=== PATIENT | male | born 1950 | race Caucasian/White ===

== ENCOUNTER 2021-05-19 19:44 | Emergency (ER) | payer SELFPAY ==
[~2021-05-19] VITALS: Ht 180.3 cm; Wt 57.9 kg
--- NOTE | 2021-05-19 20:08 | PHYS DOC ---
Past History Past Medical History: Arthritis Smoking: Cigarettes General Adult EDM: Chief Complaint: OVERDOSE HPI: HPI: ".. What.. ..". " I don't knw.. ". " Maybe took .. too many pain.. pills " Patient is a 70 year old male who presents with above hx and complaints acute mental status change felt to be due to narcotic overdose. Patient had been taking Lortabs. For recent left lower leg injury. Patient was given 2 Amps of Narcan on arrival by paramedics and patient regained consciousness. The patient returned to a very sedate state. Requires constant noxious stimuli to make him alert enough to respond to questions. Very limited hx or response from pt. Pt. currently very poor historian. Review of Systems: Review of Systems: Constitutional: Denies fever or chills Eyes: Denies change in visual acuity HENT: Denies nasal congestion or sore throat Respiratory: Denies cough or shortness of breath Cardiovascular: Denies chest pain or edema GI: Denies abdominal pain, nausea, vomiting, bloody stools or diarrhea : Denies dysuria Musculoskeletal: Denies back pain or joint pain. Complains of left lower leg pain Integument: Denies rash Neurologic: Denies headache, focal weakness or sensory changes Endocrine: Denies polyuria or polydipsia Lymphatic: Denies swollen glands Psychiatric: Denies depression or anxiety Family History: Family History: Not currently available Current Medications: Current Meds: Not currently available but reportedly taking Lortabs Allergies: Allergies: Denies Physical Exam: PE: Constitutional:no acute distress, appears under the influence of a narcotic or sedative drug HENT: Normocephalic, atraumatic, bilateral external ears normal, oropharynx moist, no oral exudates, nose normal. Edentulous Eyes: PERRLA, EOMI, conjunctiva normal, no discharge. [] Neck: Normal range of motion, no tenderness, supple, no stridor. [] Cardiovascular:Heart rate regular rhythm, no murmur [] PMI to the left. Under shows sinus rhythm in the 70s Lungs & Thorax: Bilateral breath sounds equal apex with some basilar crackles and rhonchi right upper lobes on auscultation [] Abdomen: Bowel sounds decreased, distended, soft, no tenderness, no masses, no p ulsatile masses. [] Skin: Warm, dry, no erythema, no rash. Poor turgor Back: No tenderness, no CVA tenderness. [] Extremities: Planes of left lower leg tenderness, no cyanosis, no clubbing, m oves all extremities with noxious stimuli, no edema. Left lower leg in a splint and wrappings Neurologic: Alert and oriented to name only, patient moves extremities to noxious stimuli, does appear to have distal sensation, appears to be extremely sedated Psychologic: Affect flat, judgement impaired, EKG: EKG: My interpretation EKG shows a sinus rhythm at 77 bpm. No acute morphology [] Radiology/Procedures: Radiology/Procedures: [][address] [address] IMAGING REPORT Signed PATIENT: NENA PRINGLE ACCOUNT: [id number] : 1950 LOCATION: ER AGE: 70 SEX: M EXAM STATUS: REG ER ORD. PHYSICIAN: TERESA COATES MD REASON: OD PROCEDURE: PORTABLE CHEST 1V PROCEDURE: XR CHEST 1V.05/19/2021 9:44 PM REASON FOR STUDY: Reason: OD / Spl. Instructions: / History: . COMPARISON: . FINDINGS: There could be patchy infiltrates toward the bases. The upper lungs are clear. No pleural fluid is seen. Heart size is normal. IMPRESSION: Possible mild basilar infiltrates. Electronically signed by: Dewey Wiggins Jr., MD (05/19/2021 9:45 PM) [facility] DICTATED AND SIGNED BY: DEWEY WIGGINS Jr, MD DATE: 05/19/212143 CC: TERESA COATES MD; PCP,UNKNOWN ~MTH0 0 Heart Score: C/O Chest Pain: N/A HEART Score for Chest Pain: HEART Score for Chest Pain Response (Comments) Value History Slighlty/Non-Suspicious 0 ECG Normal 0 Age > 65 2 Risk Factors 1 or 2 Risk Factors 1 Troponin < Normal Limit 0 Total 3 Risk Factors: Risk Factors: DM, Current or recent (<one month) smoker, HTN, HLP, family history of CAD, obesity. Risk Scores: Score 0 - 3: 2.5% MACE over next 6 weeks - Discharge Home Score 4 - 6: 20.3% MACE over next 6 weeks - Admit for Clinical Observation Score 7 - 10: 72.7% MACE over next 6 weeks - Early Invasive Strategies Course & Med Decision Making: Course & Med Decision Making Pertinent Labs and Imaging studies reviewed. (See chart for details) Pt. mentation gradually cleared from pronation and fluids. Patient then demanding discharge home immediately. Encourage patient to consider drug rehab. Patient return if any concerns. Patient ambulatory mild limp left lower leg. Pt.left with friend. Pt. decline to wait for formal discharge. Impression: 1. Altered Mental Status-suspect narcotic overdose 2. Mild anemia hemoglobin 11.2 3. Thrombocytopenia 97 4. Mild elevation BNP 232 5. Mild malnutrition albumin 3.1 [] Dragon Disclaimer: Dragon Disclaimer: This electronic medical record was generated, in whole or in part, using a voice recognition dictation system. Dragon Disclaimer This chart was dictated in whole or in part using Voice Recognition software in a busy, high-work load, and often noisy Emergency Department environment. It may contain unintended and wholly unrecognized errors or omissions. TERESA COATES MD May 19, 2021 20:07
[2021-05-19] MEDS ORDERED: IV RINGERS SOLUTION,LACTATED 1,000 ML IV SCH (20:15)
[2021-05-19 21:09] LABS: BASO % 0 % (0-3); EOS % 1 % (0-3); HEMOGLOBIN 11.2 g/dL (13.0-17.5); LYMPH # 0.4 x10^3/uL (1.0-4.8); LYMPH % 11 % (24-48); MEAN CORPUSCULAR HEMOGLOBIN 32 pg (25-35); MEAN CORPUSCULAR HGB CONC 34 g/dL (31-37); MEAN CORPUSCULAR VOLUME 95 fL (79-100); MONO # 0.6 x10^3/uL (0.0-1.1); MONO % 16 % (0-9); NEUT # 2.8 x10^3uL (1.8-7.7); NEUT % 73 % (31-73); PLATELET COUNT 97 x10^3/uL (140-400); RED BLOOD COUNT 3.48 x10^6/uL (4.30-5.70); RED CELL DISTRIBUTION WIDTH 13.7 % (11.5-14.5); WHITE BLOOD COUNT 3.9 x10^3/uL (4.0-11.0)
[2021-05-19 21:24] LABS: ACETAMIN < 2.0 mcg/mL (10-30); ETHANOL < 10 mg/dL (0-10); SALIC 3.7 mg/dL (2.8-20.0)
[2021-05-19 21:32] LABS: ALBUMIN 3.1 g/dL (3.4-5.0); CALCIUM 8.4 mg/dL (8.5-10.1); DIRECT BILIRUBIN 0.2 mg/dL (0.0-0.2); GFR 74.3; POTASSIUM 4.4 mmol/L (3.5-5.1); TOTAL BILIRUBIN 0.5 mg/dL (0.2-1.0); TOTAL PROTEIN 6.9 g/dL (6.4-8.2)
--- NOTE | 2021-05-19 21:47 | RAD ---
PROCEDURE: XR CHEST 1V.05/19/2021 9:44 PM REASON FOR STUDY: Reason: OD / Spl. Instructions: / History: . COMPARISON: . FINDINGS: There could be patchy infiltrates toward the bases. The upper lungs are clear. No pleural f luid is seen. Heart size is normal. IMPRESSION: Possible mild basilar infiltrates. Electronically signed by: Dewey Negron Jr., MD (05/19/2021 9:45 PM) [facility]
[2021-05-19 23:02] LABS: BARBITURATES NEG (NEG); BENZODIAZEPINES NEG (NEG); CANNABINOIDS NEG (NEG); COCAINE NEG (NEG); METHADONE NEG (NEG); OPIATES POS (NEG); PHENCYCLIDINE NEG (NEG)
[2021-05-19 23:03] LABS: AMPHETAMINE/METHAMPHETAMINE NEG (NEG)
[2021-05-19 23:06] LABS: BACTERIA,URINE 0 /HPF (0-FEW); BILIRUBIN,URINE NEG (NEG); CLARITY,URINE CLEAR; COLOR,URINE YELLOW; GLUCOSE,URINE NEG (NEG); NITRITE,URINE NEG (NEG); RBC,URINE OCC /HPF (0-2); SQUAMOUS EPITHELIAL CELL,UR OCC /LPF; WBC,URINE OCC /HPF (0-4)
[2021-05-20 00:18] VITALS: BP 94/62
--- NOTE | 2021-05-20 06:19 | EKG ---
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
== END 2021-05-20 00:23 | disposition admitted as inpatient to this hospital (09) ==
LOC: ER 19:44 → EDBD 19:44 → ER 05-20 00:23
DX: R41.82 Altered mental status, unspecified (principal); D64.9 Anemia, unspecified; D69.6 Thrombocytopenia, unspecified; E44.1 Mild protein-calorie malnutrition; F17.210 Nicotine dependence, cigarettes, uncomplicated; Z68.1 Body mass index [BMI] 19.9 or less, adult
CPT/HCPCS: 36415; 71045; 80048; 80076; 80307; 80329; 81001; 82550; 83690; 83735; 83880; 84443; 84484; 85025; 93005; 96360; 99285; G0480; J7120